=== PATIENT | male | born 1990 | race Caucasian/White ===

== ENCOUNTER 2021-07-15 09:35 | Emergency (ER) | payer OTHER, SELFPAY ==
[2021-07-15 09:36] VITALS: BP 176/95; PULSE 103; RESP 18; TEMP 36.6; O2SAT 100; BMI 30.4
--- NOTE | 2021-07-15 09:49 | EKG12_ITS ---
Test Reason : CP Blood Pressure : / mmHG Vent. Rate : 103 BPM Atrial Rate : 103 BPM P-R Int : 136 ms QRS Dur : 090 ms QT Int : 340 ms P-R-T Axes : 064 066 006 degrees QTc Int : 445 ms Sinus tachycardia Otherwise normal ECG Confirmed by AMY WOODS, ETHAN ([id number]), editor sound ERIC LOPEZ ([id number]) on 07/16/2021 9:49:13 AM Referred By: Confirmed By:ETHAN REYES MD
--- NOTE | 2021-07-15 09:54 | NURSING ---
NO OLD EKGS
[2021-07-15] MEDS: Aspirin 81 MG TAB.CHEW 324 MG PO (10:00)
--- NOTE | 2021-07-15 10:18 | RAD_ITS ---
STUDY: X-RAY CHEST REASON FOR EXAM: Male, 31 years old. Chest pain . Shortness of breath and lightheadedness. TECHNIQUE: Single AP portable view of the chest. COMPARISON: None. FINDINGS: EKG electrodes are seen. The lungs are clear and expanded. There is no demonstrated pleural abnormality. Normal size heart. Normal mediastinum and tawny. Normal visualized pulmonary arteries. Normal visualized aortic arch and descending thoracic aorta. Normal visualized thoracic spine. Normal visualized ribs, clavicles, and shoulders. There is no demonstrated abnormality of the visualized soft tissue structures of the upper abdomen. RAD/Chest 1 View (Portable) IMPRESSION: Normal x-ray examination of the chest. Electronically Signed: Jd Guo MD at 10:46 EST ,
[2021-07-15 10:22] LABS: Absolute Lymphocyte Count 2.04 X10^3/uL (0.83-4.51); Absolute Neutrophil Count 3.4 X10^3/uL (2.0-7.7); Basophil# 0.02 X10^3/uL; Basophil% 0.3 % (0-1); Eosinophil# 0.06 X10^3/uL; Hematocrit 35.8 % (40-54); Hemoglobin 12.6 g/dL (13.0-16.5); Lymphocyte # 2.04 X10^3/ul (0.83-4.51); Lymphocyte % 33.8 % (19-41); Mean Corp Hgb Conc 35.2 g/dL (32-36); Mean Corpuscular Volume 85.2 fL (80-94); Mean Platelet Vol. 8.7 fl (6.2-12.0); Monocyte# 0.48 X10^3/uL; Monocyte% 7.9 % (0-10); NRBC Flagged by Analyzer 0 % (0-5); Neutrophil # 3.42 X10^3/uL (2.7-7.7); Neutrophil % 56.7 % (47-70); Platelet Count 246 K/mm3 (150-450); RBC Distribution Width CV 12.3 % (11.6-14.6); RBC Distribution Width SD 38.4 fl (35.1-43.9)
--- NOTE | 2021-07-15 10:31 | NURSING ---
BLUE TOP TOO SHORT, NEEDS REDRAWN
--- NOTE | 2021-07-15 10:36 | EDS_ITS ---
HPI History of Present Illness Chief Complaint: Chest Pain Narrative Narrative: 31-year-old male presenting with left-sided chest pain. He states this has been intermittent. It started this morning. It sharp in nature. It is on the left side of his chest only. It does not radiate. He states he has some mild shortness of breath. Patient states his only cardiac history is a history of mitral valve prolapse. Patient states that he felt lightheaded today. He also reports that he has had chest pain similar to this in the past and lightheadedness which is similar as well. The last time he was evaluated he had a negative work-up. Patient has no history of DVT/PE and no risk factors. Patient denies cough, fever, chills. He denies nausea or vomiting. PFSH PFSH Medical History no medical history Home Medications NK 07/15/21 [History Last Taken Unknown] Allergy/AdvReac Type Severity Reaction Status Date / Time No Known Allergies Allergy Verified 07/15/21 09:38 Social History Smoking Status: Unknown if ever smoked ROS ROS ED Constitutional Constitutional ED: Denies chills or fever(s) Eyes Eyes: Denies blurry vision or change in vision ENT ENT ED: Denies rhinorrhea or sore throat Cardiovascular Cardiovascular: Reports as per HPI Respiratory/Chest Respiratory/Chest: Reports dyspnea; Denies cough Gastrointestinal Gastrointestinal: Denies abdominal pain, diarrhea, nausea or vomiting Genitourinary Genitourinary ED: Denies dysuria or hematuria Musculoskeletal Musculoskeletal: Denies arthralgias or myalgias Integumentary Denies Abrasions or rash Neurologic Neurologic: Denies headache(s) EXAM Physical Exam Const Vital Signs: 07/15/21 09:36 07/15/21 09:46 07/15/21 09:57 Temperature 97.9 F Temperature Source Temporal Pulse Rate 103 H Respiratory Rate 18 Respiratory Effort Non-Labored Short of Breath Blood Pressure 176/95 H Blood Pressure Mean 122 Pulse Ox 100 Oxygen Delivery Method Room Air Room Air 07/15/21 11:12 07/15/21 11:53 Temperature Temperature Source Pulse Rate 79 103 H Respiratory Rate 21 H 16 Respiratory Effort Blood Pressure 172/79 H Blood Pressure Mean 110 Pulse Ox 98 100 Oxygen Delivery Method Room Air Room Air Positive well nourished General Appearance ED: NAD HEENT Reports moist mucous membranes normocephalic and atraumatic Eyes PERRL and EOMs intact bilaterally Neck no lymphadenopathy and supple Chest Wall inspection of chest normal and palpation of chest normal Resp normal respiratory effort Effort and Inspection: respiratory distress Cardio regular rhythm Rate: tachycardic GI normal to inspection, nondistended, normoactive bowel sounds Extremity normal to inspection General Extremety ED: Negative for edema or tenderness General Extremity: Negative for edema Neuro oriented x3 Sensorium / Orientation: awake and alert Psych mental status grossly normal Skin no rashes or lesions noted Heart Score History: Slightly/Non-Suspicious ECG: Normal Age: </= 45 years Risk Factors: No Risk Factors Troponin: </= Normal Limit Score: 0 MDM MDM MDM Narrative Medical decision making narrative: Patient presenting with chest pain that started this morning. He has associated shortness of breath and lightheadedness with this. EKG on my interpretation shows sinus tachycardia with a ventricular rate of 103 bpm with an isolated T wave inversion in lead III. There is no ST elevation or depression. Chest x-ray on my interpretation shows no acute cardiopulmonary process and the radiologist does agree. On reevaluation patient's heart rate and blood pressure have improved medically. Patient currently asymptomatic. CBC and BMP are unremarkable. High-sensitivity troponin is 5. Delta troponin is 6. I do believe this rules out ACS. D-dimer is negative at 0.37. Covid testing is negative. Patient counseled on findings. I will give him follow-up with a primary care physician. He is given return precautions. Impression: 1. Chest pain noncardiac 2. Near syncope 3. Dyspnea Lab Data Attestation: I reviewed the patient's lab results. Labs: Laboratory Results - last 24 hr 07/15/21 07/15/21 07/15/21 10:09 10:09 10:09 WBC 6.0 RBC 4.20 L Hgb 12.6 L Hct 35.8 L MCV 85.2 MCH 30.0 MCHC 35.2 RDW Std Deviation 38.4 RDW Coeff of Julius 12.3 Plt Count 246 MPV 8.7 Immature Gran % (Auto) 0.300 Neut % (Auto) 56.7 Lymph % (Auto) 33.8 [place] % (Auto) 7.9 Eos % (Auto) 1.0 Baso % (Auto) 0.3 Absolute Neuts (auto) 3.4 Absolute Lymphs (auto) 2.04 Nucleated RBC % 0 D-Dimer Quant (PE/DVT) Cancelled Sodium 137 Potassium 3.9 Chloride 107 Carbon Dioxide 24.0 Anion Gap 6 BUN 13 Creatinine 0.92 Estim Creat Clear Calc 114.62 Est GFR (MDRD) Af Amer 125 Est GFR (MDRD) Non-Af 103 BUN/Creatinine Ratio 14.1 Glucose 86 Calcium 8.4 L Troponin I High Sens 5 07/15/21 07/15/21 11:30 11:30 WBC RBC Hgb Hct MCV MCH MCHC RDW Std Deviation RDW Coeff of Julius Plt Count MPV Immature Gran % (Auto) Neut % (Auto) Lymph % (Auto) [place] % (Auto) Eos % (Auto) Baso % (Auto) Absolute Neuts (auto) Absolute Lymphs (auto) Nucleated RBC % D-Dimer Quant (PE/DVT) 0.37 Sodium Potassium Chloride Carbon Dioxide Anion Gap BUN Creatinine Estim Creat Clear Calc Est GFR (MDRD) Af Amer Est GFR (MDRD) Non-Af BUN/Creatinine Ratio Glucose Calcium Troponin I High Sens 6 Radiography Diagnostic Testing: Clinical Impression(s) from Imaging Studies Chest X-Ray 07/15/21 10:18 IMPRESSION: Normal x-ray examination of the chest. Electronically Signed: Jd Guo MD at 10:46 EST , Discharge Plan Triage Chief Complaint: Chest Pain ED Provider: Nima Silva Dx/Rx/DC Orders Instructions: ED Chest Pain, Noncardiac, ED Near-Fainting, Uncertain Cause Prescriptions: No Action NK RF: 0 Primary Care Provider: Care Physician,No Primary Referrals: Aliza Boyer MD [STAFF PHYSICIAN] - 3-5 Days Care Physician,No Primary [Primary Care Provider] - Disposition Disposition: Home, Self Care
[2021-07-15 10:44] LABS: Anion Gap 6 (5-15); BUN 13 mg/dL (7-18); BUN/Creat Ratio 14.1 RATIO (10-20); Calcium,Total 8.4 mg/dL (8.5-10.1); Chloride 107 mmol/L (98-107); Creatinine, Serum 0.92 mg/dL (0.70-1.30); EST Glomerular Filtration Rate 103 mL/min (>60); Est Glom Filt Rate - Afr Amer 125 mL/min (>60); Estimated Creatinine Clearance 114.62 ml/min; Glucose 86 mg/dL (74-106); Potassium 3.9 mmol/L (3.5-5.1); Sodium Level 137 mmol/L (136-145); Troponin-I HS 5 pg/mL (3.0-78.0)
[2021-07-15 11:12] VITALS: PULSE 79; RESP 21; O2SAT 98
[2021-07-15 11:53] VITALS: BP 172/79; PULSE 103; RESP 16; O2SAT 100
[2021-07-15 12:03] LABS: D-Dimer Quantitative (DVT/PE) 0.37 FEU/ug/m (0.27-0.49)
[2021-07-15 12:09] LABS: Troponin-I HS 6 pg/mL (3.0-78.0)
[2021-07-15 13:01] VITALS: BP 169/72; BP 169/74; PULSE 96; RESP 15; O2SAT 97
== END 2021-07-15 13:03 | disposition home or self-care (01) ==
PROVIDERS: Emergency Provider Student in an Organized Health Care Education/Training Program; Visit Provider Student in an Organized Health Care Education/Training Program
DX: R07.89 Other chest pain (principal); R55 Syncope and collapse; R42 Dizziness and giddiness; R06.00 Dyspnea, unspecified; R06.02 Shortness of breath
CPT/HCPCS: 71045; 80048; 84484; 85025; 85379; 87426; 93005; 99284